=== PATIENT | male | born 1980 | race Caucasian/White ===

== ENCOUNTER 2016-08-29 12:19 | Emergency (ER) | payer SELFPAY ==
[~2016-08-29] VITALS: Ht 188 cm; Wt 75.9 kg
[~2016-08-29 12:19] MED LIST: IBUP-1277 PO; MULTTAB58 PO; dayquill PO
[2016-08-29 12:26] VITALS: TEMP 36.6; Ht 188 cm; Wt 75.9 kg
[2016-08-29] MEDS: XYLOCAINE 1%/SOD BICARB 20 ML VIAL INFIL ONE ×2 (14:00→14:02)
--- NOTE | 2016-08-29 14:21 | DIAGNOSTIC IMAGING REPORT ---
HEAD CT NONCONTRAST CT DOSE: 823.94 mGycm HISTORY: head injury TECHNIQUE: Multiaxial CT images of the head were performed without the use of intravenous contrast. Automated exposure control was utilized for this study. Comparison: Head CT 09/23/2007. Findings: The paranasal sinuses and mastoid air cells are clear. The calvarium and skull base are intact. The ventricles and sulci are within normal limits. There is no mass, hematoma, midline shift, or acute infarct. Slight offset of the left nasal bone appears to be old. Impression: No acute intracranial abnormality. Electronically signed by: Ron Mata M.D. 08/29/2016 2:20 PM Dictated Date/Time: 08/29/2016 2:14 PM
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
[2016-08-29] MEDS ORDERED: AMOXICILLIN 250 MG CAP PO STA (15:17)
[2016-08-29] MEDS ORDERED: AMOX500C3 PO (15:28)
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
[2016-08-29 15:42] VITALS: BP 138/87; PULSE 78; O2SAT 99
== END 2016-08-29 15:44 | disposition home or self-care (01) ==
LOC: C.EDB 12:21 → C.EDD 15:44
DX: S09.90XA Unspecified injury of head, initial encounter (principal); S01.511A Laceration without foreign body of lip, initial encounter; W20.8XXA Other cause of strike by thrown, projected or falling object, initial encounter; M51.36 Other intervertebral disc degeneration, lumbar region; M51.37 Other intervertebral disc degeneration, lumbosacral region